=== PATIENT | female | born 1985 | race Caucasian/White ===

== ENCOUNTER → 2017-11-15 | Day surgery (SDC) | payer OTHER ==
[~2017-11-15] VITALS: Ht 167.6 cm; Wt 63.5 kg
[~2017-11-15] MED LIST: JUNEL FE 1 MG-1 EACH PO; MULTIVITAMINS1 EAC9 PO
--- NOTE | 2017-11-15 14:31 | Operative Report ---
Operative/Inv Procedure Report Surgery Date: 11/15/17 Name of Procedure: LEEP Pre-Operative Diagnosis: Cervical dysplasia high-grade Post-Operative Diagnosis: Same, pathology pending Estimated Blood Loss: scant Surgeon/Cogeneration Technician: Faby Victor MD Anesthesia: moderate sedation, block Specimens: Anterior portion of cervix, posterior portion of cervix, and endocervical canal Complications: None Condition: Stable Operative Indication: The patient is a 32-year-old who had a Pap smear in September 2017 that was ASCUS with high-risk HPV. Subsequent colposcopy in October 2017 revealed a cervical biopsy that showed DIMPLE 1 and 2, and an ECC that showed DIMPLE-3. The recommendation was then made for an excisional procedure. Operative/Procedure Note Note: The patient was taken to the operating room and placed in dorsal supine position. Sedation was then achieved without difficulty. The patient was then placed in dorsal lithotomy position. A speculum was then placed in the patient' s vagina. Lugol solution was then applied to the cervix. The hypopigmented lesion was noted to be on the posterior portion of the cervix. 10 mL of lidocaine 1% with epi were then injected into the cervix. The anterior portion of the cervix was then excised with electrocautery followed by the posterior portion of the cervix. The endocervical canal was then excised in a similar fashion. Electrocautery with the rollerball was then performed on the cervix and excellent hemostasis was noted. Monsel solution was then applied to the cervix. All instruments were then removed from the patient's vagina. Portions of the cervix and the endocervical canal was sent to pathology. All counts were reported to be correct 2. The patient was then taken to the recovery room in stable condition. Discharge Disposition: Same Day Admissions
== END ==
LOC: STS 01:55
DX: N87.1 Moderate cervical dysplasia (principal)
CPT/HCPCS: 81025; J0131; J1100; J1885; J2250; J2405